=== PATIENT | male | born 1995 | race Asian ===

== ENCOUNTER → 2020-03-14 | Day surgery (SDC) | payer OTHER ==
[~2020-03-14] VITALS: Ht 175.3 cm; Wt 64.9 kg
[2020-03-14] VITALS (10 sets, daily range): BP systolic 104–126; BP diastolic 59–64
[~2020-03-14] MED LIST: LR 1000ml 1,000 ML IVLG SCH
--- NOTE | 2020-03-14 13:17 | Short Stay Surgery H&P ---
History of Present Illness History of Present Illness Chief Complaint see attached HPI Coty Birmingham is a 24 year old male who was admitted on for Gastritis Patient History Allergies: Coded Allergies: No Known Allergies (Unverified , 03/12/20) Physical Exam Vital Signs Last Vital Signs Date Time Temp Pulse Resp B/P (MAP) Pulse Ox O2 Delivery O2 Flow Rate FiO2 03/14/20 10:18 Room Air 03/14/20 10:16 98.9 80 18 114/64 99 Plan Attestation Are the patient's medical conditions optimized for surgery? Elma Paige MD Mar 14, 2020 13:17
--- NOTE | 2020-03-14 13:31 | Pre-Procedure Note/Attestation ---
Pre-Procedure Note/Attestation Complete Prior to Procedure Planned Procedure: not applicable Procedure Narrative: egd Indications for Procedure Pre-Operative Diagnosis: bile gastritis Attestation I attest that I discussed the nature of the procedure; its benefits; risks and complications; and alternatives (and the risks and benefits of such alternatives ), prior to the procedure, with the patient (or the patient's legal medical detail representative). I attest that, if there was a reasonable possibility of needing a blood transfusion, the patient (or the patient's legal medical detail representative) was given the [facility] standardized written summary, pursuant to the [place] Blood Safety Act ([place] Health and Safety Code # 1645, as amended). I attest that I re-evaluated the patient just prior to the surgery and that there has been no change in the patient's H&P, except as documented below: Elma Paige MD Mar 14, 2020 13:31
--- NOTE | 2020-03-14 13:53 | Immediate Post-Op Evaluation ---
Immediate Post-Op Evalulation Immediate Post-Op Evalulation Procedure: egd Date of Evaluation: Mar 14, 2020 Time of Evaluation: 13:53 IV Fluids: 600 Blood Pressure Systolic: 112 Blood Pressure Diastolic: 60 Pulse Rate: 74 Respiratory Rate: 14 O2 Sat by Pulse Oximetry: 98 Temperature (Fahrenheit): 97.5 Nausea: No Vomiting: No Patient Status: awake, reacts, patent Hydration Status: adequate Drug: none Amber Caldera CRNA Mar 14, 2020 13:53
--- NOTE | 2020-03-14 13:55 | Anethesia Preoperative Eval ---
Anesthesia Pre-op PMH/ROS General Date of Evaluation: Mar 14, 2020 Time of Evaluation: 13:25 Anesthesiologist: miya ASA Score: ASA 2 Mallampati Score Class I : Soft palate, uvula, fauces, pillars visible Class II: Soft palate, uvula, fauces visible Class III: Soft palate, base of uvula visible Class IV: Only hard plate visible Mallampati Classification: Class II Surgeon: elvia Diagnosis: gerd Surgical Procedure: EGD Anesthesia History: none Family History: no anesthesia problems Allergies: Coded Allergies: No Known Allergies (Unverified , 03/12/20) Medications: see eMAR Patient NPO?: Yes NPO Date: Mar 14, 2020 NPO Time: 00:01 Past Medical History Cardiovascular: Denies: HTN, CAD, SC, valve dz, arrhythmia, other Pulmonary: Denies: asthma, COPD, ENZO, other Gastrointestinal/Genitourinary: Reports: GERD; Denies: CRI, ESRD, other Neurologic/Psychiatric: Denies: dementia, CVA, depression/anxiety, TIA, other Endocrine: Denies: DM, hypothyroidism, steroids, other HEENT: Denies: cataract (L), cataract (R), glaucoma, [place] (L), [place] (R), other Hematology/Immune: Denies: anemia, DVT, bleeding disorder, other Musculoskeletal/Integumentary: Denies: OA, RA, DJD, DDD, edema, other Anesthesia Pre-op Phys. Exam Physician Exam Last Vital Signs Date Time Temp Pulse Resp B/P (MAP) Pulse Ox O2 Delivery O2 Flow Rate FiO2 03/14/20 10:18 Room Air 03/14/20 10:16 98.9 80 18 114/64 99 Constitutional: NAD Neurologic: CN 2-12 intact Cardiovascular: RRR Respiratory: CTA Gastrointestinal: S/NT/ND Airway Exam Mallampati Classification 2 Mallampati Score: Class II MO: full ROM: full Dentures: no upper, no lower Anesthesia Pre-op A/P Studies Pre-op Studies: EKG - SR Risk Assessment & Plan Assessment: no changes Plan: mac Status Change Before Surgery: No Pre-Antibiotics Drug: denied Amber Caldera CRNA Mar 14, 2020 13:55
--- NOTE | 2020-03-14 14:49 | 48 Hour Post Anesthesia Eval ---
Post Anesthesia Evaluation Procedure: egd Date of Evaluation: Mar 14, 2020 Time of Evaluation: 14:48 Blood Pressure Systolic: 126 0: 64 Pulse Rate: 53 Respiratory Rate: 14 O2 Sat by Pulse Oximetry: 98 Airway: patent Nausea: No Vomiting: No Hydration Status: adequate Cardiopulmonary Status: stable Mental Status/LOC: patient returned to baseline Post-Anesthesia Complications: none Follow-up care needed: N/A Amber Caldera CRNA Mar 14, 2020 14:49
--- NOTE | 2020-03-14 22:19 | Endoscopy Procedure Note ---
Endoscopy Procedure Note General Indication for Procedure: bile gastritis Procedures Performed: EGD Operative Findings/Diagnosis: nl Specimen: yes Anesthesia Anesthesiologist: RICARDO Anesthesia: moderate sedation Medications Medication Given: see anesthesia record Inserted Devices Implant(s) used?: No GI Core Measures 50 yrs or older w/o bx or poly: Not Applicable 10yrs. F/U recommended: Not Applicable Elma Paige MD Mar 14, 2020 22:19
--- NOTE | 2020-03-14 22:19 | Brief Operative Note ---
Immediate Post Operative Note Operative Note Chief Complaint: bile gastritis Pre-op Diagnosis: bile gastritis Procedure: esophagogastroduodenoscopy bx Anesthesia: MAC Specimen: yes Complications: none Condition: stable Fluids: per [employer] Implant(s) used?: No Elma Paige MD Mar 14, 2020 22:19
--- NOTE | 2020-03-14 23:45 | Procedure Note ---
DATE OF PROCEDURE: 03/14/2020 PROCEDURE: Upper gastrointestinal endoscopy with biopsy. SURGEON: Elma Paige M.D. ANESTHESIA: Please see the separate anesthesiologist notes for details. PRE-ENDOSCOPIC DIAGNOSIS: History of bile reflux gastritis. POST-ENDOSCOPIC DIAGNOSES: 1. Normal upper endoscopy with clear gastric contents. 2. Status post random biopsies of the duodenum, antrum, and lower esophagus. DESCRIPTION OF PROCEDURE: The procedure, its risks, indications, alternatives, and possible complications were explained to the patient and informed consent was obtained. The patient was then sedated in the left lateral decubitus position and a diagnostic upper endoscope was introduced through oropharynx and advanced to the duodenum without difficulty. The endoscope was then gradually withdrawn and the mucosa examined carefully. Examination of the upper gastrointestinal mucosa revealed no evidence of bile reflux. There was some clear mucus secretions seen in the stomach, which was felt to be within normal limits. There were no ulcerations or other abnormalities identified. Random biopsies of the duodenum, antrum, and lower esophagus were sent to pathology for review. The patient left to recovery in good condition. COMPLICATIONS: None. RECOMMENDATIONS: 1. We will follow up on biopsy results. 2. Outpatient followup. Elma Paige M.D. DR: JOB JOB#: [id number] CC:
== END | disposition home or self-care (01) ==
LOC: GAS 09:38
DX: K29.50 Unspecified chronic gastritis without bleeding (principal); K21.9 Gastro-esophageal reflux disease without esophagitis
CPT/HCPCS: 43239; 94003; U0002; 94150